=== PATIENT | female | born 1990 | race Caucasian/White ===

== ENCOUNTER 2017-02-20 13:39 | Emergency (ER) | payer OTHER ==
[~2017-02-20] VITALS: Ht 162.6 cm; Wt 113.6 kg
[2017-02-20 13:52] VITALS: BP 127/92; PULSE 109; RESP 20; O2SAT 97
--- NOTE | 2017-02-20 14:16 | ED.REPORT ---
HPI-Extremity Problem Lower Date of Service Feb 20, 2017 ED Provider: Andrey Parisi PA-C Nelly is a 26-year-old female with chief complaint of left ankle pain. She states the pain started shortly before presentation when she stepped on a curb and everted her ankle. She states she heard a pop and has been unable to walk on it since. Denies numbness, tingling in her toes. Reports a history of fibromyalgia for which she takes Suboxone. Nursing Notes Stated Complaint: LEFT ANKLE INJURY/FALL Chief Complaint: Extremity Trauma Nursing Notes Reviewed: Yes Allergies: Coded Allergies: clindamycin (Verified Allergy, Intermediate, rash, itching, 02/20/17) General Time Seen by MD: 14:03 Chief Complaint Ankle injury left Past Medical History Past Medical History Myalgia, depression, PTSD, GERD, endometriosis. Review of Systems Negative unless stated otherwise in history of present illness Physical Exam General: Well appearing, well developed, well nourished, no acute distress. Left knee: Nontender, full range of motion Left ankle/foot: Tender over lateral and medial malleoli, deltoid ligament and anterior talofibular ligament, and navicular. Nontender over the calcaneofibular ligament and posterior talofibular ligament, base of fifth metatarsal. Minimal swelling, ecchymosis over the lateral dorsal aspect. Brisk capillary refill in toes, sensation intact, motion intact. DP pulses 2+. Range of motion is significantly reduced. Head: Atraumatic, normocephalic. Eyes: No scleral icterus or injection. No discharge. Vision grossly intact. ENT: Voice clear, hearing grossly intact. Respiratory: No respiratory distress, no increased work of breathing. Speaks in complete sentences. Skin: Warm and dry. Neurological: Grossly nonfocal. Psychological: alert and oriented. Speech appropriate, linear and logical. Behavior appropriate. Initial Vital Signs Vital Signs (First) Date Time Temp Pulse Resp B/P Pulse Ox O2 Delivery O2 Flow Rate FiO2 02/20/17 13:52 36.4 109 20 127/92 97 Room Air Initial VS: Vital signs abnormal (mild tachycardia, elevated blood pressure) Interpretation & Diagnostics X-Ray Interpretation Xray Interpretation: PROCEDURE: X-RAY LEFT ANKLE, MINIMUM THREE VIEWS ([id number]) INDICATIONS: fall TECHNIQUE: 3 views of the ankle were acquired. COMPARISON: [facility], CR, FOOT COMP MIN 3VW (LT), 01/07/2013, 14:27. FINDINGS: Bones: No fractures or dislocations. Ankle mortise is normally aligned. No suspicious bony lesions. Soft tissues: No tibiotalar joint effusion. There may be mild soft tissue swelling on the anterior margin of the tibiotalar joint on the lateral view. IMPRESSION: 1. No acute fracture of the left ankle. 2. Possible anterior soft tissue swelling. Interpretation / Wet Read by: Interpret - Radiologist, Interp - [facility] Re-Eval/Medical Decision Med Decision/Clinical Course 26-year-old female G1 ankle pain after stepping off a curb and inverting her ankle. X-rays show no fractures. Physical examination is suggestive of a anterior talofibular sprain. Patient is neurovascularly intact. Tachycardia is noted and not thought to be clinically relevant, no indication of sepsis. Placed in a stirrup splint, crutches. Allowed touch down weightbearing. Advised patient control [id number] analgesia in addition to her already prescribed Suboxone. Provided referral to orthopedic follow-up, gave emergency return precautions. Patient verbalizes understanding of and content to the plan. Discharge & Departure Impression: Primary Impression: Left ankle sprain Encounter type: initial encounter Involved ligament of ankle: tibiofibular ligament Qualified Code: S93.432A - Sprain of tibiofibular ligament of left ankle, initial encounter Disposition: Home Discharge Condition All VS Reviewed: Yes Condition: Stable Patient Instructions: Ankle Sprain (GEN) Additional Instructions: Evaluation for left ankle pain in the emergency department. X-rays reveal no fracture. I believe this is a sprain of the left ankle. You are stable and safe to be discharged. Elevate the affected limb as much as possible for the next couple days. Ice for 20-30 minutes 3 times a day for the next 24 hours and be helpful. Treatment pain with your usual at home pain regimen. To this you can add naproxen 500 mg twice a day and/or 1000 mg of Tylenol up to every 8 hours. You have been provided with a stirrup splint as well as crutches. you can put the affected foot down but avoid walking on it until you see the orthopedic surgeon. I will provide referral to see an orthopedic surgeon. Please contact them tomorrow to arrange follow-up. Return to the department for new or worsening symptoms including increasing pain , numbness in the foot or up pale/cold foot. Referrals: Clemente Tan DO EDSupervising Provider for APC: Bari Lowe MD copies to: Dimitris Harris PA-C; Clemente Tan Seth PA-C Feb 20, 2017 14:16
--- NOTE | 2017-02-20 15:15 | DRSVH ---
PROCEDURE: X-RAY LEFT ANKLE, MINIMUM THREE VIEWS ([id number]) INDICATIONS: fall TECHNIQUE: 3 views of the ankle were acquired. COMPARISON: [facility], CR, FOOT COMP MIN 3VW (LT), 01/07/2013, 14:27. FINDINGS: Bones: No fractures or dislocations. Ankle mortise is normally aligned. No suspicious bony lesions . Soft tissues: No tibiotalar joint effusion. There may be mild soft tissue swelling on the anterior margin of the tibiotalar joint on the lateral view. IMPRESSION: 1. No acute fracture of the left ankle. 2. Possible anterior soft tissue swelling. Dictated by: Nikunj Schneider M.D. on 02/20/2017 at 14:12 Approved by: Niknuj Schneider M.D. on 02/20/2017 at 14:13
[2017-02-20 16:13] VITALS: BP 153/103; PULSE 100; RESP 18; O2SAT 98
== END 2017-02-20 15:53 | disposition home or self-care (01) ==
LOC: SED 13:39
DX: S93.432A Sprain of tibiofibular ligament of left ankle, initial encounter (principal); X50.1XXA Overexertion from prolonged static or awkward postures, initial encounter; Y93.89 Activity, other specified; Y92.89 Other specified places as the place of occurrence of the external cause; Y99.8 Other external cause status; K21.9 Gastro-esophageal reflux disease without esophagitis; Z88.1 Allergy status to other antibiotic agents
CPT/HCPCS: 29515; 73610; 96372; 99284; J1885